=== PATIENT | female | born 1970 | race Caucasian/White ===

== ENCOUNTER → 2018-03-03 | Outpatient (CLI) | payer OTHER ==
[~2018-03-03] MED LIST: AMBIEN5 MG PO; CRESTOR40 MG PO; CYMBALTA60 MG PO; FE C TABLET1 EACH PO; LISINOPRIL10 MG PO; MICROZIDE12.5 M1 PO; PRILOSEC20 MG PO
== END | disposition home or self-care (01) ==
LOC: CDC 09:00
DX: Z01.810 Encounter for preprocedural cardiovascular examination (principal); C50.912 Malignant neoplasm of unspecified site of left female breast; R94.31 Abnormal electrocardiogram [ECG] [EKG]
CPT/HCPCS: 93000

== ENCOUNTER 2018-03-10 07:04 | Day surgery (SDC) | payer OTHER ==
[~2018-03-10] VITALS: Ht 157.5 cm; Wt 83.0 kg
[2018-03-10 07:30] VITALS: BP 100/53
[2018-03-10] MEDS ORDERED: HYDROCODON-ACE1 EAC7 PO (14:21)
[2018-03-10 15:49] VITALS: BP 118/57
[2018-03-10 16:55] VITALS: BP 113/58
== END 2018-03-10 16:50 | disposition home or self-care (01) ==
LOC: SDC 07:04 → NUC 09:00 → SDC 09:00
PROC: 3E0W3KZ Introduction of Other Diagnostic Substance into Lymphatics, Percutaneous Approach (ICD-10-PCS; principal; 2018-03-10)
PROC: 0HBU0ZZ Excision of Left Breast, Open Approach (ICD-10-PCS; principal; 2018-03-10)
PROC: 07B60ZX Excision of Left Axillary Lymphatic, Open Approach, Diagnostic (ICD-10-PCS; principal; 2018-03-10)
DX: C50.512 Malignant neoplasm of lower-outer quadrant of left female breast (principal); Z17.0 Estrogen receptor positive status [ER+]; D64.9 Anemia, unspecified; K21.9 Gastro-esophageal reflux disease without esophagitis; E78.5 Hyperlipidemia, unspecified; I10 Essential (primary) hypertension; E66.9 Obesity, unspecified; Z80.3 Family history of malignant neoplasm of breast; Z80.1 Family history of malignant neoplasm of trachea, bronchus and lung; Z80.41 Family history of malignant neoplasm of ovary; Z80.0 Family history of malignant neoplasm of digestive organs; Z88.5 Allergy status to narcotic agent; Z68.33 Body mass index [BMI] 33.0-33.9, adult
CPT/HCPCS: 78195; 78999; 84702; 88305; 88307; A9541; J0131; J0690; J1100; J1170; J2250; J2405; J2765; J3010; S0020